=== PATIENT | female | born 1990 | race Caucasian/White ===

== ENCOUNTER 2020-08-04 18:31 | Outpatient (REF) | payer OTHER, SELFPAY ==
--- NOTE | 2020-08-04 19:00 | MR_ITS ---
EXAMINATION: MR BRAIN WITHOUT CONTRAST CLINICAL INFORMATION: Tremor. COMPARISON: Head CT from 09/24/2019 and brain MRI dated 01/12/2017. TECHNIQUE: Multiplanar, multisequence imaging of the brain was performed without contrast. FINDINGS: No diffusion abnormalities are identified to suggest an acute or subacute infarct. The ventricles are normal in size. No mass effect or midline shift is seen. No brain parenchymal signal abnormality is noted. No extra-axial fluid collections are seen. The brainstem and cerebellum are normal. The gradient refocused acquisition is normal. The craniovertebral junction, marrow signal, and midline structures are normal. The major intracranial flow voids at the level of the [place] are preserved. The dural venous sinus flow voids are maintained. The mastoid air cells are well aerated. There is mild mucosal thickening in the ethmoid sinuses. IMPRESSION: Normal MRI of the brain. No acute process.
== END 2020-08-04 18:32 | disposition home or self-care (01) ==
LOC: HO.MRI 18:31
PROVIDERS: Visit Provider Family Medicine
DX: R25.1 Tremor, unspecified (principal)
CPT/HCPCS: 70551

== ENCOUNTER → 2021-09-21 14:30 | Outpatient (BNVA) | payer OTHER, SELFPAY | PROVIDERS: Visit Provider Advanced Practice Midwife | DX: Z30.019 Encounter for initial prescription of contraceptives, unspecified (principal) | CPT/HCPCS: 99202 ==

== ENCOUNTER 2024-10-04 13:34 | Emergency (ER) | payer OTHER, SELFPAY ==
[2024-10-04 13:40] VITALS: BP 124/79; PULSE 94; RESP 20; TEMP 36.3; O2SAT 99; BMI 29.1
--- NOTE | 2024-10-04 13:40 | ED_ITS ---
HPI - General Adult General Chief complaint: Nausea/Vomiting/Diarrhea Stated complaint: vomiting, weak Time Seen by Provider: 10/04/24 20:54 Source: patient Mode of arrival: ambulatory Limitations: no limitations History of Present Illness ED Provider: Dr. Bonnie Stovall HPI narrative: Patient comes to the emergency room complaining of 1 week of nausea and vomiting, generalized malaise. Patient was diagnosed week ago with COVID. Patient states that she has been taking ondansetron more than tongue but she continues vomiting. Patient denies abdominal pain or diarrhea. Patient denies any chest pain or shortness of breath. Related Data Home Medications ?Medication ?Instructions ?Recorded ?Confirmed buspirone 5 mg tablet 5 mg PO TID 09/21/21 09/21/21 carbamazepine 200 mg tablet 100 mg PO DAILY 09/21/21 09/21/21 levonorgestrel 21 mcg/24 hr (up to intrauterine 09/21/21 09/21/21 8 years) 52 mg intrauterine device (Mirena) Previous Rx's ?Medication ?Instructions ?Recorded prochlorperazine maleate 5 mg 5 mg PO TID PRN nausea and 10/04/24 tablet (Compazine) vomiting #10 tabs Allergies Allergy/AdvReac Type Severity Reaction Status Date / Time No Known Allergies Allergy Verified 10/04/24 13:41 Review of Systems 2 Review of Systems: Constitutional : No Weight loss, No Fever, No Chills, No Night Sweats, No Fatigue, complaining of generalized malaise ENT/Mouth : No Hearing loss, No Ear Pain, No Nasal Congestion, No Sinus Pain, No Hoarseness, No sore throat, No Rhinorrhea, No Swallowing Difficulty Eyes: No Eye Pain, No Swelling, No Redness, No Foreign Body, No Discharge, No Vision Changes Cardiovascular : No Chest Pain, No SOB, No Dyspnea on Exertion, No Orthopnea, No Edema, No Palpitations Respiratory : No Cough, No Sputum, No Wheezing, No Smoke Exposure, No Dyspnea Gastrointestinal : Complaining of nausea and vomiting No Diarrhea, No Constipation, No abdominal Pain, No Hematochezia, No Melena Genitourinary : no irregular bleeding, No Dysuria, No Urinary Frequency, No Hematuria, No Urinary Incontinence, No Urgency, No Flank Pain, No Urinary Flow Changes, No Hesitancy Musculoskeletal : No joint pain, No Myalgias, No Joint Swelling Skin : No Skin Lesions, No rash Neuro : No Weakness, No Numbness, No Paresthesias, No Loss of Consciousness, No Dizziness, No Headache Psych : No Anxiety/Panic, No Depression, No SI/HI/AH/VH, No Social Issues, Heme/Lymph: No Bruising, No Bleeding,No Lymphadenopathy Endocrine : No Polyuria, No Polydipsia, No Temperature Intolerance [facility] Past Medical History Medical History History of gallbladder disease Bipolar disorder Anxiety Family History Family History (Updated 09/21/21 @ 14:42 by Darío Flynn [facility]) Maternal Grandmother Heart disease Breast cancer Social History Social History (Updated 09/21/21 @ 14:43 by Darío Flynn [facility]) Alcohol intake: never Patient Tobacco Use Status: Never used Tobacco Smoked in Last 30 Days: No Use of substances other than those prescribed or required for medical reasons: No Advance Directives: No Advance Directives Information Provided: No Patient : No Gender identity: Female Physical Exam ED Vital Signs: Vital Signs - 24 hr 10/04/24 13:40 10/04/24 20:12 Temperature 97.4 F 98.6 F Pulse Rate 94 98 Respiratory Rate 20 18 Blood Pressure 124/79 126/72 Pulse Oximetry 99 99 Oxygen Delivery Method Room Air Room Air BMI result Body Mass Index 29.1 Const Other: Appearance: Alert. Oriented X3. No acute distress. Well-appearing Eyes: Pupils equal, round and reactive to light. ENT: Pharynx normal. Neck: Normal inspection. Neck supple. No lymph nodes noted. No crepitus CVS: Normal heart rate and rhythm. Pulses normal. Normal S1 and S2 Respiratory: No respiratory distress. Breath sounds normal. No Wheezing. No rales Abdomen: Soft and nontender. No rigidity. No distention. Skin: Skin warm and dry. Normal skin color. Normal skin turgor. Extremities: No lower extremity edema. No Lacerations. No Rash Neuro: Oriented X 3. No motor deficit. No sensory deficit. Moving all extremities. No slurred speech. CN 2 through 12 grossly intact Psych: calm, cooperative, normal affect Course Course Course Narrative: This is a rapid medical exam performed by Kirill Hackett NP: Additional HPI, ROS, PE not included below will be deferred to primary provider. Patient is a 34-year-old female presenting to the ED with complaint of nausea and vomiting since Monday, unable to tolerate any fluids. Went to [facility], thinks she may have been diagnosed with Covid but is not sure. She was prescribed nausea medication which is not helping. Denies diarrhea, abd pain, fevers. Plan: viral serology, labs Medications Administered Discontinued Medications Generic Name Dose Route Start Last Admin Trade Name Freq PRN Reason Stop Dose Admin Sodium Chloride 1,000 mls @ 999 mls/hr 10/04/24 21:01 10/04/24 22:03 Ns IVCONT 10/04/24 22:01 999 mls/hr .Q1H1M ONE Administration Ketorolac Tromethamine 30 mg 10/04/24 21:01 10/04/24 22:03 Ketorolac Tromethamine 30 Mg/Ml Vial IVPUSH 10/04/24 21:02 30 mg ONCE ONE Administration Ondansetron HCl 4 mg 10/04/24 20:29 10/04/24 20:44 Ondansetron Odt 4 Mg Tab.Rapdis TRANSLINGU 10/04/24 20:30 4 mg ONCE ONE Administration Potassium Chloride 20 meq 10/04/24 21:01 10/04/24 22:03 Potassium Chloride Er 20 Meq Tab.Er.Prt PO 10/04/24 21:02 20 meq ONCE ONE Administration Prochlorperazine Edisylate 10 mg 10/04/24 21:01 10/04/24 22:02 Prochlorperazine Edisylate 10 Mg/2 Ml Vial IVPUSH 10/04/24 21:02 10 mg ONCE ONE Administration Medical Decision Making Medical Decision Making [facility] Narrative: My interpretation of labs: Patient's hematology and chemistry do not show any acute abnormality other than a small drop in potassium which was repleted p.o.. Serology positive for COVID still. Patient was giving IV fluids, Compazine, ketorolac, and potassium p.o.. overall patient states that she feels better. Patient ready for discharge. Patient aware that this is symptomatic treatment, the viral infection needs to run its course. Differential Diagnosis Differential Diagnoses: The differential diagnosis associated with the presentation includes (COVID, RSV, influenza, viral URI) Lab Data [facility] Lab Attestation statement: I reviewed the patient's lab results. 10/04/24 13:55 10/04/24 13:55 Labs: Lab Results 10/04/24 Range/Units 13:55 WBC 8.3 (4.8-10.8) X10*3/uL RBC 4.72 (4.20-5.50) X10*6/uL Hgb 14.0 (12.0-16.0) g/dl Hct 39.9 (37.0-47.0) % MCV 84.5 (80.0-98.0) fL MCH 29.7 (27.0-33.0) pg MCHC 35.1 H (31.0-35.0) g/dl RDW 13.0 (11.0-16.0) % Plt Count 248 (160-400) X10*3/uL MPV 11.3 (9.4-12.3) fL Immature Gran % (Auto) 0.2 (0.0-0.4) % Neut % (Auto) 61.1 (45-73) % Lymph % (Auto) 31.7 (20-40) % [place] % (Auto) 5.2 (2-11) % Eos % (Auto) 1.4 (0-4) % Baso % (Auto) 0.4 (0-2) % Lymph # (Auto) 2.6 (1.2-4.9) X10*3/uL [place] # (Auto) 0.4 (0.1-1.2) X10*3/uL Eos # (Auto) 0.1 (0.0-0.4) X10*3/uL Baso # (Auto) 0.0 (0.0-0.2) X10*3/uL Abs Immat Gran (auto) 0.02 (0.00-0.03) X10*3/uL Absolute Neuts (auto) 5.1 (2.0-8.3) x10*3/uL Absolute Nucleated RBC 0.000 (0.0-0.012) X10*3/uL Nucleated RBC % (auto) 0.0 (0.0-0.2) /100WBC Sodium 145 (135-145) mmol/L Potassium 3.2 L (3.3-5.1) mmol/L Chloride 109 H (96-108) mmol/L Carbon Dioxide 25 (22-29) mmol/L Anion Gap 14 (12-20) BUN 9 (9-16) mg/dL Creatinine 0.69 (0.5-1.4) mg/dL Estim Creat Clear Calc 108.8 Estimated GFR > 60 Random Glucose 105 (60-115) mg/dL Calcium 8.7 (8.4-10.2) mg/dL Magnesium 1.9 (1.6-2.6) mg/dL Total Bilirubin 0.9 (0.0-1.0) mg/dL AST 94 H (5-31) U/L ALT 143 H (0-31) U/L Alkaline Phosphatase 91 (39-117) U/L Total Protein 7.6 (6.5-8.0) g/dL Albumin 4.0 (3.5-5.0) g/dL Lipase 17 (8-78) U/L Beta HCG, Quant < 2 mIU/mL Influenza Type A (PCR) NEGATIVE (Negative) Influenza Type B (PCR) NEGATIVE (Negative) RSV RNA Qual (PCR) NEGATIVE (Negative) SARS-CoV-2 RNA (RT-PCR) POSITIVE A (Negative) Discharge Plan Discharge Clinical Impression: COVID-19, Nausea & vomiting, Acute hypokalemia Patient Disposition: Home, Self-Care Instructions: Hypokalemia (ED), Acute Nausea and Vomiting (ED), COVID-19 (Coronavirus Disease 2019) (ED) Additional Instructions: Please follow-up with your primary care physician tomorrow. If you have any worsening or new symptoms, please return to the emergency room or call 911 Prescriptions: New prochlorperazine maleate [Compazine] 5 mg tablet 5 mg PO TID PRN (Reason: nausea and vomiting) Qty: 10 0RF No Action Mirena 20 mcg/24 hours (7 yrs) 52 mg intrauterine device intrauterine carbamazepine 200 mg tablet 100 mg PO DAILY buspirone 5 mg tablet 5 mg PO TID Print Language: [place]
[2024-10-04 14:01] LABS: MANUAL DIFF FLAG NO
[2024-10-04 14:03] LABS: Basophils Percent Auto 0.4 % (0-2); Eosinophils Absolute Auto 0.1 X10*3/uL (0.0-0.4); Eosinophils Percent Auto 1.4 % (0-4); Hematocrit 39.9 % (37.0-47.0); Imm Gran Abs Auto 0.02 X10*3/uL (0.00-0.03); Imm Gran Pct Auto 0.2 % (0.0-0.4); Lymphocytes Absolute Auto 2.6 X10*3/uL (1.2-4.9); Lymphocytes Percent Auto 31.7 % (20-40); Mean Corpuscular HGB Conc 35.1 g/dl (31.0-35.0); Mean Corpuscular Hemoglobin 29.7 pg (27.0-33.0); Mean Corpuscular Volume 84.5 fL (80.0-98.0); Mean Platelet Volume 11.3 fL (9.4-12.3); Monocytes Absolute Auto 0.4 X10*3/uL (0.1-1.2); Monocytes Percent Auto 5.2 % (2-11); Neutrophils Absolute Auto 5.1 x10*3/uL (2.0-8.3); Neutrophils Percent Auto 61.1 % (45-73); Platelet Count 248 X10*3/uL (160-400); Red Blood Count 4.72 X10*6/uL (4.20-5.50); White Blood Count 8.3 X10*3/uL (4.8-10.8)
[2024-10-04 14:25] LABS: Alanine Aminotransferase 143 U/L (0-31); Alkaline Phosphatase 91 U/L (39-117); Anion Gap 14 (12-20); Aspartate Amino Transferase 94 U/L (5-31); Bilirubin Total 0.9 mg/dL (0.0-1.0); Blood Urea Nitrogen 9 mg/dL (9-16); Calcium 8.7 mg/dL (8.4-10.2); Carbon Dioxide 25 mmol/L (22-29); Chloride 109 mmol/L (96-108); Creatinine Clr Calc Pharmacy 108.8; Estimated Glomerular Filt Rate > 60; Glucose Random 105 mg/dL (60-115); Lipase 17 U/L (8-78); Magnesium 1.9 mg/dL (1.6-2.6); Potassium 3.2 mmol/L (3.3-5.1); Sodium 145 mmol/L (135-145); Total Protein 7.6 g/dL (6.5-8.0)
[2024-10-04 14:28] LABS: HCG Quantitative < 2 mIU/mL
[2024-10-04 14:38] LABS: Influenza A PCR NEGATIVE (Negative); Influenza B PCR NEGATIVE (Negative); Resp Syncy Virus RNA Qual PCR NEGATIVE (Negative); SARS COV2 PCR INHOUSE POSITIVE (Negative)
[2024-10-04 20:12] VITALS: BP 126/72; PULSE 98; RESP 18; TEMP 37; O2SAT 99
[2024-10-04] MEDS: Ondansetron ODT 4 MG TAB.RAPDIS TRANSLINGU (20:44)
[2024-10-04] MEDS: Prochlorperazine Edisylate 10 MG/2 ML VIAL IVPUSH (22:02)
[2024-10-04] MEDS: Ketorolac Tromethamine 30 MG/ML VIAL IVPUSH (22:03)
[2024-10-04] MEDS: 0.9 % Sodium Chloride 1,000 ML 999 ML IVCONT (22:03)
[2024-10-04] MEDS: Potassium Chloride ER 20 MEQ TAB.ER.PRT PO (22:03)
[2024-10-04 23:23] VITALS: BP 113/71; PULSE 81; RESP 14; TEMP 36.8; O2SAT 99
== END 2024-10-04 23:24 | disposition home or self-care (01) ==
PROVIDERS: Registered Nurse Emergency; Emergency Provider Emergency Medicine
DX: U07.1 COVID-19 (principal); E87.6 Hypokalemia; R11.2 Nausea with vomiting, unspecified; R53.81 Other malaise; Z79.899 Other long term (current) drug therapy
CPT/HCPCS: 0241U; 80053; 83690; 83735; 84702; 85025; 96361; 96374; 96375; 99284; J0737; J1885